=== PATIENT | female | born 1950 | race Caucasian/White ===

== ENCOUNTER 2016-05-03 23:11 | Observation (INO) | payer OTHER ==
[2016-05-03] MEDS ORDERED: NS 500 ML IV ONE (23:17)
[2016-05-03] MEDS ORDERED: NITROGLYCERIN 0.4 MG BTL SL PRN (23:17)
--- NOTE | 2016-05-03 23:18 | EDPHY ---
H & P HPI/ROS: HPI CHIEF COMPLAINT: Chest discomfort HISTORY OF PRESENT ILLNESS: This patient is a very pleasant 66-year-old female significant past medical history for hyperlipidemia, presents emergency room after she developed a discomfort in her chest starting around 730 this evening. Patient tells me that she had a achy sensation in the center of her chest or the feeling of something was sitting on it, she denies numbness scan, weakness, shortness of breath, pleuritic pain, nausea, diaphoresis. She took multiple episodes of Tums without any relief. She continued to have discomfort she called her doctor recommend that she call 911. EMS arrived and evaluate her she was having chest discomfort she was given full-dose aspirin prior to arrival and nitroglycerin and nitroglycerin that she was given did improve her chest discomfort. She now presents to the emergency room with minimal to no chest discomfort. Denies nausea, shortness of breath. It is noted the patient just flew back from [place]. She has not been recently sick. Her pre-hospital EKG did show some ST depression in V4 V5 and V6. Past Medical History: Hyperlipidemia Past Surgical History: no recent surgery Social History: Denies use drugs alcohol tobacco products Family History: family history of cardiac disease in her mother. ROS REVIEW OF SYSTEMS: A comprehensive 10 point review of systems is otherwise negative aside from elements mentioned in the history of present illness. Exam Constitutional triage nursing summary reviewed, vital signs reviewed, awake/ alert. Eyes normal conjunctivae and sclera, EOMI, PERRLA. HENT normal inspection, atraumatic, moist mucus membranes, no epistaxis, neck supple/ no meningismus, no raccoon eyes. Respiratory clear to auscultation bilaterally, normal breath sounds, no respiratory distress, no wheezing. Cardiovascular rate normal, regular rhythm, no murmur, no edema, distal pulses normal. Gastrointestinal soft, non-tender, no rebound, no guarding, normal bowel sounds, no distension, no pulsatile mass. Genitourinary no CVA tenderness. Musculoskeletal no midline vertebral tenderness, full range of motion, no calf swelling, no tenderness of extremities, no meningismus, good pulses, neurovascularly intact. Skin pink, warm, & dry, no rash, skin atraumatic. Neurologic awake, alert and oriented x 3, AAOx3, moves all 4 extremities equally, motor intact, sensory intact, CN II-XII intact, normal cerebellar, normal vision, normal speech. Psychiatric normal mood/affect. Heme/Lymph/Immune no lymphadenopathy. Differential diagnosis includes but is not limited to: ACS, atypical chest pain , pneumothorax, pneumonia, pulmonary embolism, aortic dissection, congestive heart failure, tumor, musculoskeletal pain, esophageal pain, GERD, peptic ulcer disease, pancreatitis Medical Decision Making: This patient will be placed on full x ray developer, and EKG will be obtained, she will had an IV established receive IV fluid bolus, she has already received full dose aspirin, she received nitroglycerin to see if this completely eliminate her chest discomfort. We will re-evaluate her shortly. She will need a chest x-ray. This patient's symptoms are concerning for cardiac disease. Re-evaluation: EKG interpretation by me on record in [employer] system. Impression time of EKG 2333, this is sinus rhythm rate of [address] depression V4 V5 less than half a mm otherwise no acute ischemic change. This is better than her pre- hospital EKG. ED x-ray chest one view: Negative for acute cardiopulmonary disease. Image interpreted by myself. 1211: this patient is chest pain-free at this time. 1215: spoke with Dr. donato the hospitalist service who agrees to admit this patient overnight EACU admission. Chest pain cardiac evaluation and rule out. Source: Patient, EMS - Personal History Tetanus Vaccine Date: unknow - Medical/Surgical History Hx Asthma: No Hx Chronic Respiratory Disease: No Hx Diabetes: No Hx Cardiac Disease: No Hx Renal Disease: No Hx Cirrhosis: No Hx Alcoholism: No Hx HIV/AIDS: No Hx Splenectomy or Spleen Trauma: No Other PMH: PREVIOUS KNEE SURGERIES. Osteo arthritis. - Social History Smoking Status: Never smoked Constitutional: Initial Vital Signs Temperature (C) 36.9 C 05/03/16 23:40 Heart Rate 81 05/03/16 23:40 Respiratory Rate 16 05/03/16 23:40 Blood Pressure 122/76 H 05/03/16 23:40 O2 Sat (%) 94 05/03/16 23:40 O2 Delivery Mode Room Air Allergies/Adverse Reactions: codeine [Codeine] Allergy (Verified 07/11/13 14:03) Home Medications: Medication Instructions Recorded Simvastatin [Zocor 20 mg] 20 mg PO DAILY 01/29/12 Ascorbic Acid [Vitamin C 500 mg 1,000 mg PO DAILY 06/23/13 (*)] Cholecalciferol Vit D3 [Vitamin D3 2,000 units PO DAILY 06/23/13 (*)] Estradiol [Vivelle-Dot 0.0375MG 0.0375 mg TD SUFR@0800 06/23/13 (*)] Herbals/Supplements -Info Only 1 ea PO DAILY 06/23/13 Multivitamins [Multivitamin (*)] 1 each PO DAILY 06/23/13 Vit C/Dl-E AC/Lut/Copper/Znox 1 each PO HS 06/23/13 [Preservision Softgel] Vitamin B Complex [B Complex] 1 each PO DAILY 06/23/13 Medical Decision Making - Data Points Laboratory Results: Laboratory Results 05/03/16 23:15 05/03/16 23:15 05/03/16 05/03/16 05/03/16 23:15 23:15 23:15 WBC 6.99 10^3/uL 10^3/uL (3.80-9.50) RBC 4.60 10^6/uL 10^6/uL (4.18-5.33) Hgb 14.0 g/dL g/dL (12.6-16.3) Hct 42.4 % % (38.0-47.0) MCV 92.2 fL fL (81.5-99.8) MCH 30.4 pg pg (27.9-34.1) MCHC 33.0 g/dL g/dL (32.4-36.7) RDW 13.0 % % (11.5-15.2) Plt Count 163 10^3/uL 10^3/uL (150-400) MPV 11.7 fL fL (8.7-11.7) Neut % (Auto) 61.9 % % (39.3-74.2) Lymph % (Auto) 25.2 % % (15.0-45.0) [place] % (Auto) 8.6 % % (4.5-13.0) Eos % (Auto) 3.4 % % (0.6-7.6) Baso % (Auto) 0.6 % % (0.3-1.7) Nucleat RBC Rel Count 0.0 % % (0.0-0.2) Absolute Neuts (auto) 4.33 10^3/uL 10^3/uL (1.70-6.50) Absolute Lymphs (auto) 1.76 10^3/uL 10^3/uL (1.00-3.00) Absolute Monos (auto) 0.60 10^3/uL 10^3/uL (0.30-0.80) Absolute Eos (auto) 0.24 10^3/uL 10^3/uL (0.03-0.40) Absolute Basos (auto) 0.04 10^3/uL 10^3/uL (0.02-0.10) Absolute Nucleated RBC 0.00 10^3/uL 10^3/uL (0-0.01) Immature Gran % 0.3 % % (0.0-1.1) Immature Gran # 0.02 10^3/uL 10^3/uL (0.00-0.10) PT 12.2 SEC SEC (12.0-15.0) INR 0.91 (0.83-1.16) APTT 29.0 SEC SEC (23.0-38.0) D-Dimer Pending Sodium 143 mEq/L mEq/L (134-144) Potassium 4.0 mEq/L mEq/L (3.5-5.2) Chloride 103 mEq/L mEq/L (97-110) Carbon Dioxide 29 mEq/l mEq/l (22-31) Anion Gap 11 mEq/L mEq/L (8-16) BUN 16 mg/dL mg/dL (7-23) Creatinine 0.9 mg/dL mg/dL (0.6-1.0) Estimated GFR > 60 Glucose 143 mg/dL H mg/dL (70-100) Calcium 10.0 mg/dL mg/dL (8.5-10.4) Magnesium 2.0 mg/dL mg/dL (1.6-2.3) Total Bilirubin 0.5 mg/dL mg/dL (0.1-1.4) Conjugated Bilirubin 0.2 mg/dL mg/dL (0.0-0.5) Unconjugated Bilirubin 0.3 mg/dL mg/dL (0.0-1.1) AST 33 IU/L IU/L (14-46) ALT 37 IU/L IU/L (9-52) Alkaline Phosphatase 80 IU/L IU/L (38-126) Troponin I Pending NT-Pro-B Natriuret Pep Pending Total Protein 7.1 g/dL g/dL (6.3-8.2) Albumin 4.3 g/dL g/dL (3.5-5.0) Lipase 67.0 IU/L IU/L (23-300) Medications Given: Discontinued Medications Sodium Chloride (Ns) 500 mls @ 0 mls/hr IV ONCE ONE PRN Reason: As Directed Stop: 05/03/16 23:18 Last Admin: 05/03/16 23:54 Dose: 500 mls Departure - Departure Disposition: [facility] Inpatient Acute Clinical Impression: Chest pain Qualifiers: Chest pain type: unspecified Qualified Code(s): R07.9 - Chest pain, unspecified Condition: Fair Referrals: Patient,NotPresent [Unknown] - As per Instructions
--- NOTE | 2016-05-03 23:40 | CPEKG ---
Heart Rate: 80 RR Interval: 750 P-R Interval: 140 QRSD Interval: 90 QT Interval: 368 QTC Interval: 425 P [place]: -4 QRS [place]: -12 T Wave [place]: 67 EKG Severity - NORMAL ECG - EKG Impression: SINUS RHYTHM Electronically Signed By: Sadiq Contreras 06-May-2016 12:07:17
[2016-05-03 23:58] LABS: % IMMATURE GRANULYOCYTES 0.3 % (0.0-1.1); ABSOLUTE IMMATURE GRANULOCYTES 0.02 10^3/uL (0.00-0.10); ADD DIFF? NO; ADD MORPH? NO; ADD SCAN? NO; ATYPICAL LYMPHOCYTE FLAG 0 (0-99); FRAGMENT RBC FLAG 0 (0-99); HEMATOCRIT 42.4 % (38.0-47.0); LEFT SHIFT FLG 0 (0-99); LIPEMIA HEMOLYSIS FLAG 80 (0-99); MEAN CELL HEMOGLOBIN 30.4 pg (27.9-34.1); MEAN CELL VOLUME 92.2 fL (81.5-99.8); MEAN PLATELET VOLUME 11.7 fL (8.7-11.7); PLATELET CLUMPS FLAG 10 (0-99); PLATELET COUNT 163 10^3/uL (150-400)
[2016-05-04 00:01] LABS: INR 0.91 (0.83-1.16); PROTIME(PATIENT) 12.2 SEC (12.0-15.0)
[2016-05-04 00:03] LABS: ALANINE AMINOTRANSFERASE 37 IU/L (9-52); ALBUMIN 4.3 g/dL (3.5-5.0); ALKALINE PHOSPHATASE 80 IU/L (38-126); ANION GAP 11 mEq/L (8-16); ASPARTATE AMINOTRANSFERASE 33 IU/L (14-46); BILIRUBIN,TOTAL 0.5 mg/dL (0.1-1.4); BILIRUBIN-CONJUGATED 0.2 mg/dL (0.0-0.5); BILIRUBIN-UNCONJUGATED 0.3 mg/dL (0.0-1.1); CARBON DIOXIDE 29 mEq/l (22-31); CHLORIDE 103 mEq/L (97-110); CREATININE 0.9 mg/dL (0.6-1.0); GLOMERULAR FILTRATION RATE > 60; GLUCOSE 143 mg/dL (70-100); SODIUM 143 mEq/L (134-144); TOTAL PROTEIN 7.1 g/dL (6.3-8.2)
[2016-05-04 00:19] LABS: TROPONIN I < 0.012 ng/mL (0-0.034)
[2016-05-04] MEDS ORDERED: ONDANSETRON 4 MG/2 ML VIAL IVP PRN (00:33)
[2016-05-04] MEDS ORDERED: NITROGLYCERIN 0.4 MG BTL SL PRN (00:33)
--- NOTE | 2016-05-04 00:42 | PDGENHP ---
History and Physical - Chief Complaint chest pain - History of Present Illness Patient is a 66/F with HLD who presents to the ED with a complaint of chest pain. She states she was sitting watching TV this evening when she began to feel burning in her epigastric region. The transitioned into a tightness/ heaviness in her mid chest. She took Tums without relief. Chest symptoms were nonradiating, not associated with palpitations, dizziness/lightheadedness, shortness of breath or nausea. She called her PMD's office regarding her symptoms, she was advised to take full dose aspirin and call EMS. On EMS arrival , she continued to have CP, EMS EKG showed ST segment depressions in V4-V6 and II, III. On arrival to the ED patient was hemodynamically stable. She felt her symptoms had resolved. ED EKG revealed normal sinus rhythm without ST segment changes. Labs, including CBC, BMP, troponin and D-dimer were all within normal limits. She was then admitted to the hospitalist service for further management. Of note, patient reports returning from a recent vacation in [place] yesterday, flight of 3.4 hrs in duration. She denies any leg swelling, palpitations or shortness of breath. She does report exercising regularly, without symptoms. She had a normal stress test about 7 years ago. History Information - Allergies/Home Medication List Allergies/Adverse Reactions: codeine [Codeine] Allergy (Verified 07/11/13 14:03) Home Medications: Simvastatin [Zocor 20 mg] 20 mg PO DAILY 01/29/12 [Last Taken 07/10/13 22:00] Ascorbic Acid [Vitamin C 500 mg (*)] 1,000 mg PO DAILY 06/23/13 [Last Taken ] Cholecalciferol Vit D3 [Vitamin D3 (*)] 2,000 units PO DAILY 06/23/13 [Last Taken 07/04/13] Estradiol [Vivelle-Dot 0.0375MG (*)] 0.0375 mg TD SUFR@0800 06/23/13 [Last Taken 07/10/13] Herbals/Supplements -Info Only 1 ea PO DAILY 06/23/13 [Last Taken 07/04/13] Multivitamins [Multivitamin (*)] 1 each PO DAILY 06/23/13 [Last Taken 07/04/13] Vit C/Dl-E AC/Lut/Copper/Znox [Preservision Softgel] 1 each PO HS 06/23/13 [ Last Taken 07/04/13] Vitamin B Complex [B Complex] 1 each PO DAILY 06/23/13 [Last Taken 07/04/13] I have personally reviewed and updated: family history, medical history, social history, surgical history - Past Medical History Additional medical history: HLD - Surgical History Additional surgical history: hysterectomy. R TKR - Family History Additional family history: M: CHF, HTN - Social History Smoking Status: Never smoked Alcohol Use: Occasionally Drug Use: None Additional social history: Patient currently lives alone, works in an office setting an administrative assistent. Review of Systems ROS: 10pt was reviewed & negative except for what was stated in HPI & below Physical Exam Temp Pulse Resp BP Pulse Ox 36.9 C 86 16 133/86 H 96 05/03/16 23:40 05/04/16 00:00 05/04/16 00:00 05/04/16 00:00 05/04/16 00:00 Constitutional: no apparent distress, appears nourished, not in pain Eyes: PERRL, anicteric sclera, EOMI Ears, Nose, Mouth, Throat: moist mucous membranes, hearing normal, ears appear normal, no oral mucosal ulcers Cardiovascular: regular rate and rhythym, no murmur, rub, or gallop, pulses symmetric bilaterally, No JVD, No edema Peripheral Pulses: 2+: dorsalis-pedis (R), dorsalis-pedis (L) Respiratory: no respiratory distress, no rales or rhonchi, clear to auscultation Gastrointestinal: normoactive bowel sounds, soft, non-tender abdomen, no palpable masses, No guarding, No rebound, No distension Genitourinary: no bladder fullness, no bladder tenderness Skin: warm, normal color, no rashes or abrasions, no fluctuance, no induration, No mottled Musculoskeletal: full muscle strength, no muscle tenderness, normal joint ROM, no joint effusions Neurologic: AAOx3, sensation intact bilaterally, CN II-XII Intact, No weakness, No numbness, No pronator drift, No facial droop Psychiatric: interacting appropriately, not anxious, not encephalopathic, thought process linear Lab Data & Imaging Review 05/03/16 23:15 05/03/16 23:15 WBC 6.99 10^3/uL (3.80-9.50) 05/03/16 23:15 RBC 4.60 10^6/uL (4.18-5.33) 05/03/16 23:15 Hgb 14.0 g/dL (12.6-16.3) 05/03/16 23:15 Hct 42.4 % (38.0-47.0) 05/03/16 23:15 MCV 92.2 fL (81.5-99.8) 05/03/16 23:15 MCH 30.4 pg (27.9-34.1) 05/03/16 23:15 MCHC 33.0 g/dL (32.4-36.7) 05/03/16 23:15 RDW 13.0 % (11.5-15.2) 05/03/16 23:15 Plt Count 163 10^3/uL (150-400) 05/03/16 23:15 MPV 11.7 fL (8.7-11.7) 05/03/16 23:15 Neut % (Auto) 61.9 % (39.3-74.2) 05/03/16 23:15 Lymph % (Auto) 25.2 % (15.0-45.0) 05/03/16 23:15 [place] % (Auto) 8.6 % (4.5-13.0) 05/03/16 23:15 Eos % (Auto) 3.4 % (0.6-7.6) 05/03/16:15 Baso % (Auto) 0.6 % (0.3-1.7) 05/03/16 23:15 Nucleat RBC Rel Count 0.0 % (0.0-0.2) 05/03/16 23:15 Absolute Neuts (auto) 4.33 10^3/uL (1.70-6.50) 05/03/16 23:15 Absolute Lymphs (auto) 1.76 10^3/uL (1.00-3.00) 05/03/16 23:15 Absolute Monos (auto) 0.60 10^3/uL (0.30-0.80) 05/03/16 23:15 Absolute Eos (auto) 0.24 10^3/uL (0.03-0.40) 05/03/16 23:15 Absolute Basos (auto) 0.04 10^3/uL (0.02-0.10) 05/03/16 23:15 Absolute Nucleated RBC 0.00 10^3/uL (0-0.01) 05/03/16 23:15 Immature Gran % 0.3 % (0.0-1.1) 05/03/16 23:15 Immature Gran # 0.02 10^3/uL (0.00-0.10) 05/03/16 23:15 PT 12.2 SEC (12.0-15.0) 05/03/16 23:15 INR 0.91 (0.83-1.16) 05/03/16 23:15 APTT 29.0 SEC (23.0-38.0) 05/03/16 23:15 D-Dimer < 0.27 ug/mLFEU (0.00-0.50) 05/03/16 23:15 Sodium 143 mEq/L (134-144) 05/03/16 23:15 Potassium 4.0 mEq/L (3.5-5.2) 05/03/16 23:15 Chloride 103 mEq/L (97-110) 05/03/16 23:15 Carbon Dioxide 29 mEq/l (22-31) 05/03/16 23:15 Anion Gap 11 mEq/L (8-16) 05/03/16 23:15 BUN 16 mg/dL (7-23) 05/03/16 23:15 Creatinine 0.9 mg/dL (0.6-1.0) 05/03/16 23:15 Estimated GFR > 60 05/03/16 23:15 Glucose 143 mg/dL (70-100) H 05/03/16 23:15 Calcium 10.0 mg/dL (8.5-10.4) 05/03/16 23:15 Magnesium 2.0 mg/dL (1.6-2.3) 05/03/16 23:15 Total Bilirubin 0.5 mg/dL (0.1-1.4) 05/03/16 23:15 Conjugated Bilirubin 0.2 mg/dL (0.0-0.5) 05/03/16 23:15 Unconjugated Bilirubin 0.3 mg/dL (0.0-1.1) 05/03/16 23:15 AST 33 IU/L (14-46) 05/03/16 23:15 ALT 37 IU/L (9-52) 05/03/16 23:15 Alkaline Phosphatase 80 IU/L (38-126) 05/03/16 23:15 Troponin I < 0.012 ng/mL (0-0.034) 05/03/16 23:15 NT-Pro-B Natriuret Pep 64 pg/mL (0-125) 05/03/16 23:15 Total Protein 7.1 g/dL (6.3-8.2) 05/03/16 23:15 Albumin 4.3 g/dL (3.5-5.0) 05/03/16 23:15 Lipase 67.0 IU/L (23-300) 05/03/16 23:15 Visualized and Interpreted Chest x-ray results: Yes Chest X-Ray results: no infiltrate, normal Visualized and Interpreted EKG results: Yes EKG Interpretation: Positive for: normal sinsus rhythm (no st/t wave changes, normal intervals) Assessment & Plan Assessment: Patient is a 66/F with hyperlipidemia who presents to the ED with complaint of chest pain. Initial ED work up is unremarkable. Plan: # chest pain Patient's symptoms were concerning for cardiac etiology, and have resolved prior to arrival in the ED. EMS EKG does show evidence of ST segment depressions , however, these are not present on ED EKG. Will monitor serial cardiac enzymes , serial EKGs and if these remain negative, will further risk stratify with stress test in AM. # dispo: admit to observation for chest pain work up # gen: NPO Full code
[2016-05-04 04:23] LABS: CHOLESTEROL 183 mg/dL (140-220); CHOLESTEROL/HDL RATIO 4.69 RATIO (1.00-4.44); HIGH DENSITY LIPOPROTEIN 39 mg/dL (40-85); LDL/HDL RATIO 2.59 RATIO (1.00-3.22); LOW DENSITY LIPOPROTEIN 101 mg/dL (80-100); NON-HIGH DENSITY LIPOPROTEIN 144 mg/dL (90-129); TRIGLYCERIDE 218 mg/dL (35-135); VERY LOW DENSITY LIPOPROTEINS 43 mg/dL (8-25)
--- NOTE | 2016-05-04 11:44 | CPR ---
[f rep st] NONINVASIVE CARDIAC PROCEDURE REPORT DATE OF PROCEDURE: 05/04/2016 PROCEDURE: Exercise treadmill test. INDICATION: The patient is a 66-year-old female who presented to the hospital complaining of 1 epis ode of burning/tightness in her chest. She was sitting watching a TV show when her symptoms started . Her risk factors for coronary disease include hyperlipidemia. She just returned from [place] and was very active, walking at least 20 minutes a day, and sometimes up to an hour on the beach. She d enies any exertional chest discomfort. DESCRIPTION OF PROCEDURE: Consent was obtained and the patient was placed on continuous telemetry. Her resting EKG revealed normal sinus rhythm with minimal nonspecific ST-T wave changes in the infe rior and lateral leads. The patient walked on the treadmill for 9 minutes without any associated sy mptoms. She remained in normal sinus rhythm throughout the study. She developed [address] depression in the inferior and lateral leads. Her blood pressure peaked at 160/84 and returned t o recovery within 5 minutes of the recovery phase. Her EKG quickly returned to baseline within 1-2 minutes of recovery. PLAN: Equivocal exercise treadmill test. I think if the patient has recurrent chest discomfort, a more sophisticated study such as a nuclear stress test would be indicated. /[id number]/MODL
[2016-05-04 12:12] VITALS: BP 136/73; PULSE 87; RESP 16; TEMP 98.1; O2SAT 94
--- NOTE | 2016-05-04 16:35 | GDS ---
[f rep st] DISCHARGE SUMMARY KNOWN ACUTE DIAGNOSES: 1. Acute chest pain, presumed noncardiac in origin. Negative stress test was found. 2. Elevated cholesterol, treated with Zocor. 3. Postmenopausal, on hormone replacement. CONSULTATION: Cardiology. PROCEDURES: Exercise treadmill test, showing equivocal results with [address]-segment de pression in the inferior and lateral leads with a blood pressure of 160/84. No symptoms of chest james n, and a normal recovery within 5 minutes. The ECG quickly returned to baseline in 1-2 minutes of re covery. The exercise stress test was thought to be equivocal, and that if there were more symptoms o f chest discomfort, the patient should have a nuclear stress test. HOSPITAL COURSE: This is a 66-year-old female who complained of episodes of anterior chest tightnes s with a burning sensation. She was seen in the emergency department. The troponin series was negati ve. Triglycerides were elevated at 218. Her cardiac risk factor was 1.2, with an LDL of 101. The HDL was 39. Remainder of her laboratories were normal. Exercise stress test was equivocal, showing [address]-segment depression in the inferior and lateral leads without symptoms of chest pain , a normal blood pressure, and a normal recovery. The test was felt to be equivocal, and should the patient have more episodes of chest pain a nuclear study was suggested. DISCHARGE MEDICATIONS: Vitamin B complex, vitamin C complex, PreserVision Soft Gel 1 each day, Zoco r 20 mg daily, Nitrostat 0.4 mg 1 sublingually q.5 minutes p.r.n. chest pain #20, multivitamin daily , herbal supplementation, estradiol 0.0375 mg transdermally on Wednesday and Wednesday, vitamin D3 2000 in ternational units daily, and vitamin C 1000 mg daily. PLAN: The patient is returning home on her own care. She is alert, oriented, well, without any symp toms of chest pain or discomfort. She has been instructed to use nitroglycerin as prescribed should she have episodes of chest pain and if this occurs she should come to the emergency department. She has also been told to contact [facility] or possibly Dr. Blanco for an appointment within the n ext 4-6 weeks for further possible cardiac risk stratification. Note that if the patient presents for repeat episode of chest pain, a nuclear stress test has been s uggested. Time this discharge required: 60 minutes, greater than 50% to counseling specialist and coordinate care. /[id number]/MODL
== END 2016-05-04 13:27 | disposition home or self-care (01) ==
LOC: EDUNIT# → F1N 05-04 01:01
PROVIDERS: ADMIT Internal Medicine; ATTEND Internal Medicine
DX: R07.89 Other chest pain (principal); E78.00 Pure hypercholesterolemia, unspecified; Z78.0 Asymptomatic menopausal state; Z79.890 Hormone replacement therapy
CPT/HCPCS: 71010; 93005; 93017; G0378

== ENCOUNTER → 2016-09-04 | Outpatient (CLI) | payer OTHER | LOC: FIMAGING 08:39 | PROVIDERS: ATTEND Emergency Medicine | DX: K76.0 Fatty (change of) liver, not elsewhere classified (principal) ==

== ENCOUNTER → 2017-03-02 | Outpatient (CLI) | payer OTHER | LOC: FIMAGING 08:08 | PROVIDERS: ATTEND Internal Medicine | DX: Z12.31 Encounter for screening mammogram for malignant neoplasm of breast (principal) ==

== ENCOUNTER → 2018-03-03 | Outpatient (CLI) | payer OTHER | LOC: FIMAGING 14:22 | PROVIDERS: ATTEND Internal Medicine | DX: Z12.31 Encounter for screening mammogram for malignant neoplasm of breast (principal) ==

== ENCOUNTER → 2018-03-23 | Outpatient (CLI) | payer OTHER | LOC: FIMAGING 08:52 | PROVIDERS: ATTEND Internal Medicine | DX: Z13.820 Encounter for screening for osteoporosis (principal); Z78.0 Asymptomatic menopausal state ==

== ENCOUNTER → 2018-06-24 | Outpatient (CLI) | payer OTHER ==
[~2018-06-24] MED LIST: IOPAMIDOL (ISOVUE-300) 100 ML BTL ONE
== END ==
LOC: FIMAGING 10:53
PROVIDERS: ATTEND Internal Medicine
DX: K59.00 Constipation, unspecified (principal); K57.30 Diverticulosis of large intestine without perforation or abscess without bleeding
CPT/HCPCS: 82565-PO; Q9967